=== PATIENT | female | born 1950 | race Caucasian/White ===

== ENCOUNTER 2020-01-14 13:37 | Outpatient (CLI) | payer MEDICARE, SELFPAY | END 2020-01-14 13:38 | disposition home or self-care (01) | PROVIDERS: PCP Family Medicine; Visit Provider Nurse Practitioner Family | DX: F41.9 Anxiety disorder, unspecified (principal); Z79.899 Other long term (current) drug therapy | CPT/HCPCS: 36415; 84436; 84443 ==

== ENCOUNTER 2020-03-13 10:53 | Outpatient (CLI) | payer MEDICARE, SELFPAY | END 2020-03-13 10:54 | disposition home or self-care (01) | LOC: ANHAUDIO 10:54 | PROVIDERS: PCP Family Medicine; Visit Provider Otolaryngology | DX: H93.19 Tinnitus, unspecified ear (principal); H90.3 Sensorineural hearing loss, bilateral | CPT/HCPCS: 92557; 92567 ==

== ENCOUNTER 2020-04-02 14:13 | Outpatient (RCR) | payer MEDICARE, SELFPAY | END 2020-04-02 23:59 | disposition home or self-care (01) | LOC: ANHAUDIO 14:13 | PROVIDERS: PCP Family Medicine; Visit Provider Family Medicine | DX: Z46.1 Encounter for fitting and adjustment of hearing aid (principal) | CPT/HCPCS: 99199 ==

== ENCOUNTER → 2020-12-16 02:33 | Outpatient (CLI) | payer MEDICARE, SELFPAY ==
[2020-12-16 18:17] LABS: SARS-CoV-2 RNA PCR Negative
== END ==
PROVIDERS: PCP Family Medicine; Visit Provider Nurse Practitioner Family
DX: R68.89 Other general symptoms and signs (principal); Z20.822 Contact with and (suspected) exposure to COVID-19
CPT/HCPCS: C9803; U0003; U0005

== ENCOUNTER 2020-12-31 13:23 | Outpatient (CLI) | payer MEDICARE, SELFPAY ==
--- NOTE | ~2020-12-31 | XR_ITS ---
XR hip LT min 3V w AP pelvis DATE: 12/31/2020 13:54 INDICATION: Left hip pain. Fall 3 months ago. TECHNIQUE: AP pelvis. AP, lateral and crosstable lateral views of left hip COMPARISON: None FINDINGS: There is severe degenerative disc disease at L4-5 and evidence of prominent degenerative di sc disease at L5-S1. Normal alignment at the pubic symphysis and sacroiliac joints. Moderate osteopenia. No pelvic fracture or bone destruction is detected. Hip joint spaces appear symmetric and relatively preserved. No fracture or dislocation, avascular necrosis or bone destruction of the left hip. IMPRESSION: Osteopenia Prominent degenerative disc disease at L4-5 and L5-S1 Reviewed, dictated and finalized at location A.
[2020-12-31 14:35] LABS: Basophils Absolute Auto 0.1 K/mm3 (0.0-0.1); Basophils Percent Auto 0.6 % (0.2-1.2); Eosinophils Absolute Auto 0.3 K/mm3 (0-0.3); Eosinophils Percent Auto 3.9 % (0-4.4); Hematocrit 37.9 % (37.0-47.0); Immature Granulocyte Absolute 0.03 K/mm3 (0.00-0.031); Immature Granulocyte Percent A 0.4 % (0-0.5); Lymphocytes Absolute Auto 1.75 K/mm3 (0.9-3.2); Lymphocytes Percent Auto 22.6 % (18.3-44.2); Mean Corpuscular HGB Conc 31.7 g/dl (32-36); Mean Corpuscular Hemoglobin 30.2 pg (26-34); Mean Corpuscular Volume 95.2 fl (80-100); Mean Platelet Volume 9.7 fl (7.4-10.4); Monocytes Absolute Auto 0.5 K/mm3 (0.1-0.6); Monocytes Percent Auto 6.2 % (2.6-8.5); Neutrophils Absolute Auto 5.1 K/mm3 (1.3-6.7); Neutrophils Percent Auto 66.3 % (45.5-73.1); Platelet Count Result 307 k/mm3 (150-375); Red Blood Count 3.98 M/mm3 (4.2-5.4); Red Cell Distribution Width 13.7 % (11.5-14.5); White Blood Count 7.7 K/mm3 (4.5-10.0)
[2020-12-31 14:59] LABS: Alanine Aminotransferase 14 U/L (4-35); Albumin Level 4.2 g/dL (3.5-5.1); Alkaline Phosphatase 81 U/L (38-126); Anion Gap 6 mmol/L (8-16); Aspartate Amino Transferase 28 U/L (14-36); Bilirubin,Total 0.6 mg/dL (0.2-1.3); Blood Urea Nitrogen 19 mg/dL (7-17); Calcium 9.2 mg/dL (8.4-10.2); Carbon Dioxide 26 mmol/L (22-30); Chloride 106 mmol/L (98-107); Cholesterol 282 mg/dL (0-200); Estimated Glomerular Filt Rate 49; Glucose 86 mg/dL (65-110); HDL Direct 39 mg/dL; Potassium 4.1 mmol/L (3.4-5.0); Sodium 138 mmol/L (137-145); Triglycerides 167 mg/dL (<150)
[2020-12-31 15:10] LABS: LDL Cholesterol Direct 156 mg/dL
== END 2020-12-31 13:24 | disposition home or self-care (01) ==
LOC: ANHIMG 13:25
PROVIDERS: PCP Family Medicine; Visit Provider Physician Assistant Medical
DX: M25.552 Pain in left hip (principal); G89.29 Other chronic pain; Z13.220 Encounter for screening for lipoid disorders; I10 Essential (primary) hypertension; M51.36 Other intervertebral disc degeneration, lumbar region; M85.88 Other specified disorders of bone density and structure, other site
CPT/HCPCS: 36415; 73502; 80053; 80061; 84443; 85025

== ENCOUNTER 2021-02-02 15:00 | Outpatient (RCR) | payer MEDICARE, SELFPAY ==
--- NOTE | 2021-01-21 15:05 | PTOPEVAL ---
PHYSICAL THERAPY EVALUATION AND PLAN OF CARE 01-21-21 Thank you for referring Beth Hercules to [facility].? She is scheduled to be seen for therapy? 2x/week for 4 weeks. Please review, sign, date and return this plan of care ARNOLD. I agree with and certify that the following plan of care is medically necessary. Referring Physician Date Attending Provider: NATALIA Moore PT Outpatient Evaluation Document 01/21/21 14:00 TRAN (Rec: 01/21/21 15:04 TRAN [id number]) Outpatient Past Medical History Past Medical History Source of Past Medical History Patient Neurological History Hx Other Neurological Disorders Yes: gabapentin for strange nerve sensations in her head Cardiovascular History Hx Hypercholesterolemia Yes: meds Hx Hypertension Yes: meds Respiratory History Hx Respiratory Disorders No Significant History Gastrointestinal History Hx Appendectomy Yes Hx Obstructive Bowel Yes: surgery Genitourinary History Hx Other Genitourinary Disorders Yes: constipation of bowels; incontinence bladder Musculoskeletal History Hx Arthritis Yes: RA-hands,ankles,R knee Hx Orthopedic Surgery Yes: L foot/toe surgery ~ 4 yr ago; Hematological History Hx Hematological Disorders No Significant History Endocrine History Hx Hypothyroidism Yes: meds Psychosocial History Hx Anxiety Yes: meds control Other History Hx Other Medical Conditions Yes: wt gain of 25# in past 6 months; have had covid vaccine Evaluation Information Problem Diagnosis L hip pain, chronic pain Onset September 2020 Subjective Information fell outside, landed /fell Query Text:As Reported By Patient/ backwards, landed on L tail Family bone and L hand; L thumb/ wrist pain, wearing wrist/ thumb immobilizer brace; pain increased in low back, L hip, R knee and L wrist since fall ; had steroid pack, helped pain; Diagnostic Tests X-Rays For This Problem Yes: lumbar degenerative disc; MRI For This Problem No Other Tests For This Problem No Previous Treatments Previous Treatments For This Problem no PT Prior Level of Function Activity Level (Last 3 Months) Occupation retired Hand Dominance Right Activity of Daily Living Ability Independent Indoor/Home Mobility Independent Community Mobility Independent Stairs Ability Independent Functional Cognition (Planning, Shopping Independent
--- NOTE | 2021-01-30 11:54 | PCPTNOTE ---
Patient called & cancelled scheduled appointment this date and stated she would call to reschedule.
--- NOTE | 2021-02-06 14:21 | PCPTNOTE ---
pt called and canceled today's appt due to a dental emergency;
--- NOTE | 2021-02-10 12:49 | PCPTNOTE ---
pt called and canceled today's appt due to dental appt;
--- NOTE | 2021-02-13 14:35 | PCPTNOTE ---
PHYSICAL THERAPY DISCHARGE 02-13-21 Attending Provider: NATALIA Moore Patient:Beth Hercules Date of :1950 Ms. Hercules has received 3 PT sessions for the diagnosis of L hip pain. She called today, stated she was better and did not need any additional therapy. Therefore, she will be discharged from PT services. The goals were not assessed. Thank you for referring Joelle to [facility]. Please review, sign, date and return this discharge summary ARNOLD. I have been updated about the patient's current status and I agree with discharge from the above service at this time. Referring Physician Date
== END 2021-02-17 08:44 | disposition home or self-care (01) ==
LOC: ANHPT 15:00
PROVIDERS: PCP Family Medicine; Visit Provider Nurse Practitioner Family
DX: M25.552 Pain in left hip (principal); G89.29 Other chronic pain
CPT/HCPCS: 97014; 97110; 97140; 97162; G0283

== ENCOUNTER 2021-04-01 10:17 | Outpatient (CLI) | payer MEDICARE, SELFPAY ==
--- NOTE | ~2021-04-01 | XR_ITS ---
XR lumbar spine 2-3V DATE: 04/01/2021 10:50 INDICATION: Back pain TECHNIQUE: AP, lateral, coned lateral lumbosacral views COMPARISON: 07/23/2013 lumbar spine FINDINGS: There is diffuse osteopenia. There is mild degenerative disc disease at L1-2, L2-3 and L3-4. There is severe degenerative disc disease and grade 1 anterolisthesis at L4-5; there is degenerative change at the apophyseal joints of the lumbosacral area.. There is moderately severe degenerative disease at L5-S1. Lumbar spinal stenosis is not excluded. The sacroiliac joints are intact. There is abdominal aortic and iliac arterial calcification. IMPRESSION: Diffuse osteopenia Multilevel degenerative disc disease, most severe at L4-5 Grade 1 anterolisthesis at L4-5 due to degenerative change at the apophyseal joints Reviewed, dictated and finalized at location A. PLACER IMPRESSION: Diffuse osteopenia Multilevel degenerative disc disease, most severe at L4-5 Grade 1 anterolisthesis at L4-5 due to degenerative change at the apophyseal liana ints
[2021-04-01 11:39] LABS: Basophils Absolute Auto 0.1 K/mm3 (0.0-0.1); Basophils Percent Auto 0.6 % (0.2-1.2); Eosinophils Absolute Auto 0.3 K/mm3 (0-0.3); Eosinophils Percent Auto 3.2 % (0-4.4); Hematocrit 39.5 % (37.0-47.0); Hemoglobin 12.9 g/dL (12.0-15.0); Immature Granulocyte Absolute 0.03 K/mm3 (0.00-0.031); Immature Granulocyte Percent A 0.3 % (0-0.5); Lymphocytes Absolute Auto 2.08 K/mm3 (0.9-3.2); Lymphocytes Percent Auto 22.1 % (18.3-44.2); Mean Corpuscular HGB Conc 32.7 g/dl (32-36); Mean Corpuscular Hemoglobin 31.7 pg (26-34); Mean Corpuscular Volume 97.1 fl (80-100); Mean Platelet Volume 9.5 fl (7.4-10.4); Monocytes Absolute Auto 0.5 K/mm3 (0.1-0.6); Monocytes Percent Auto 5.7 % (2.6-8.5); Neutrophils Absolute Auto 6.4 K/mm3 (1.3-6.7); Neutrophils Percent Auto 68.1 % (45.5-73.1); Platelet Count Result 265 k/mm3 (150-375); Red Blood Count 4.07 M/mm3 (4.2-5.4); Red Cell Distribution Width 13.2 % (11.5-14.5); White Blood Count 9.4 K/mm3 (4.5-10.0)
[2021-04-01 11:58] LABS: Anion Gap 9 mmol/L (8-16); Blood Urea Nitrogen 16 mg/dL (7-17); Carbon Dioxide 24 mmol/L (22-30); Chloride 102 mmol/L (98-107); Estimated Glomerular Filt Rate > 60; Glucose 93 mg/dL (65-110); Potassium 4.4 mmol/L (3.4-5.0); Sodium 135 mmol/L (137-145)
== END 2021-04-01 10:18 | disposition home or self-care (01) ==
PROVIDERS: PCP Family Medicine; Visit Provider Physician Assistant Medical
DX: M47.817 Spondylosis without myelopathy or radiculopathy, lumbosacral region (principal); I10 Essential (primary) hypertension
CPT/HCPCS: 36415; 72100; 80048; 84443; 85025

== ENCOUNTER 2021-04-21 10:47 | Outpatient (CLI) | payer MEDICARE, SELFPAY ==
--- NOTE | ~2021-04-21 | MR_ITS ---
EXAMINATION: MR lumbar spine wo con EXAM DATE: 04/21/2021 11:39 INDICATION: M51.36 - Other intervertebral disc degeneration, lumbar radiculopathy. Low back pain, nick ateral leg pain right side worse. TECHNIQUE: Multi-sequential, multiplanar MR images of the lumbar spine were obtained without contrast . Sagittal T1, T2, T2 fat saturation images. Axial T2 weighted images. There is no prior study for comparison. FINDINGS: There is L4-5 moderate to severe disc disease. Mild to moderate disc disease at the other l umbar levels. The conus medullaris terminates at the L1 level and has normal signal intensity and mor phology. There is 2 mm retrolisthesis L1 on L2, L2 on L3, L3 on L4. There is 2 mm anterolisthesis L4 on L5. Paraspinal soft tissue is unremarkable. Level by level evaluation: T12-L1: Small central disc protrusion. Facet arthropathy: None. Neural foraminal stenosis: No stenosis. Central canal stenosis: No stenosis. L1-L2: There is a mild to moderate diffuse disc bulge. Facet arthropathy: Mild. Neural foraminal stenosis: No stenosis. Central canal stenosis: Mild. L2-L3: There is a mild to moderate diffuse disc bulge. Facet arthropathy: Mild to moderate. Neural foraminal stenosis: Minimal left. Central canal stenosis: Mild. L3-L4: There is a mild diffuse disc bulge. Facet arthropathy: Mild to moderate. Neural foraminal stenosis: No stenosis. Central canal stenosis: Mild. L4-L5: There is a moderate diffuse disc bulge. Facet arthropathy: Severe . Ligamentum flavum enlargement. Neural foraminal stenosis: Moderate to severe left, moderate right. Central canal stenosis: Moderate to severe. L5-S1: There is a mild to moderate diffuse disc bulge. Facet arthropathy: Mild to moderate. Neural foraminal stenosis: No stenosis. Central canal stenosis: Mild. IMPRESSION: 1. L4-5 moderate to severe disc disease, central canal stenosis and left neural foraminal stenosis. 2. Otherwise mild to moderate lumbar spondylosis. Reviewed, dictated and finalized at location A. STIVE TECHNOLOGY SPECIALIST IMPRESSION: 1. L4-5 moderate to severe disc disease, central canal stenosis and left neura l foraminal stenosis. 2. Otherwise mild to moderate lumbar spondylosis.
== END 2021-04-21 10:48 | disposition home or self-care (01) ==
LOC: ANHIMG 10:50
PROVIDERS: PCP Family Medicine; Visit Provider Family Medicine
DX: M47.815 Spondylosis without myelopathy or radiculopathy, thoracolumbar region (principal); M48.05 Spinal stenosis, thoracolumbar region; M47.817 Spondylosis without myelopathy or radiculopathy, lumbosacral region; M48.07 Spinal stenosis, lumbosacral region
CPT/HCPCS: 72148

== ENCOUNTER → 2021-06-01 15:04 | Outpatient (CLI) | payer MEDICARE, SELFPAY ==
--- NOTE | ~2021-06-01 | XR_ITS ---
EXAMINATION: XR knee RT min 4V DATE: 06/01/2021 15:26 INDICATION: Right knee pain. TECHNIQUE: 4 views of right knee including standing views were obtained. COMPARISON: Right knee radiographs 07/23/2013 FINDINGS: Bone alignment is normal. No fracture. There is mild osteoarthritis of patellofemoral evin rtment characterized by tiny marginal osteophytes. No knee joint effusion. IMPRESSION: 1. Mild right knee osteoarthritis. Reviewed, dictated and finalized at location A. ER SERVICE SPECIALIST
== END ==
PROVIDERS: PCP Family Medicine
DX: M25.561 Pain in right knee (principal); M17.11 Unilateral primary osteoarthritis, right knee
CPT/HCPCS: 73564

== ENCOUNTER 2021-10-14 14:31 | Outpatient (CLI) | payer MEDICARE, SELFPAY ==
[2021-10-14 15:53] LABS: Basophils Absolute Auto 0.1 K/mm3 (0.0-0.1); Basophils Percent Auto 0.7 % (0.2-1.2); Eosinophils Absolute Auto 0.4 K/mm3 (0-0.3); Eosinophils Percent Auto 3.1 % (0-4.4); Hematocrit 42.9 % (37.0-47.0); Hemoglobin 13.6 g/dL (12.0-15.0); Immature Granulocyte Absolute 0.07 K/mm3 (0.00-0.031); Immature Granulocyte Percent A 0.6 % (0-0.5); Lymphocytes Absolute Auto 2.21 K/mm3 (0.9-3.2); Lymphocytes Percent Auto 17.4 % (18.3-44.2); Mean Corpuscular HGB Conc 31.7 g/dl (32-36); Mean Corpuscular Volume 97.7 fl (80-100); Mean Platelet Volume 9.6 fl (7.4-10.4); Monocytes Absolute Auto 0.7 K/mm3 (0.1-0.6); Monocytes Percent Auto 5.1 % (2.6-8.5); Neutrophils Absolute Auto 9.3 K/mm3 (1.3-6.7); Neutrophils Percent Auto 73.1 % (45.5-73.1); Platelet Count Result 286 k/mm3 (150-375); Red Blood Count 4.39 M/mm3 (4.2-5.4); Red Cell Distribution Width 13.3 % (11.5-14.5); White Blood Count 12.7 K/mm3 (4.5-10.0)
[2021-10-14 16:07] LABS: Anion Gap 6 mmol/L (8-16); Blood Urea Nitrogen 17 mg/dL (7-17); Calcium 8.8 mg/dL (8.4-10.2); Carbon Dioxide 26 mmol/L (22-30); Chloride 108 mmol/L (98-107); Estimated Glomerular Filt Rate > 60; Glucose 85 mg/dL (65-110); Potassium 4.2 mmol/L (3.4-5.0); Sodium 140 mmol/L (137-145)
== END 2021-10-14 14:32 | disposition home or self-care (01) ==
LOC: ANHLAB 14:33
PROVIDERS: PCP Family Medicine; Visit Provider Physician Assistant Medical
DX: I10 Essential (primary) hypertension (principal); N28.9 Disorder of kidney and ureter, unspecified
CPT/HCPCS: 36415; 80048; 85025

== ENCOUNTER 2022-04-30 10:28 | Outpatient (CLI) | payer MEDICARE, SELFPAY ==
--- NOTE | ~2022-04-30 | XR_ITS ---
EXAMINATION: XR shoulder LT min 2V INDICATION: Left shoulder TECHNIQUE: Four views of the left shoulder are obtained on five radiographs. COMPARISON: None FINDINGS: Normal alignment. No fracture. There is unchanged mild osteoarthritis of the glenohumeral a nd acromioclavicular joints. Soft tissues are unremarkable. IMPRESSION: 1. Mild osteoarthritis without significant change. Reviewed, dictated and finalized at location A. RINE MAKER
== END 2022-04-30 10:29 | disposition home or self-care (01) ==
PROVIDERS: PCP Family Medicine; Visit Provider Nurse Practitioner Family
DX: M25.512 Pain in left shoulder (principal); M19.012 Primary osteoarthritis, left shoulder
CPT/HCPCS: 73030

== ENCOUNTER 2022-06-08 13:41 | Outpatient (CLI) | payer MEDICARE, SELFPAY ==
--- NOTE | ~2022-06-08 | DEXA_ITS ---
Bone Density Report Name: FLIP MONTOYA Age: 72 Sex: Female Ethnicity: White Date of : 1950 Indication: postmenopausal; screening for osteoporosis; hysterectomy; Referring Provider: MOOKIE ISABEL Study: Bone densitometry was performed. Exam Date: June 08, 2022 Accession number: [id number] Bone Density: Region BMD T-score Z-score Classification AP Spine(L1, L2, L3) 0.903 -1.0 1.0 Normal Femoral Neck (Left) 0.550 -2.7 -0.9 Osteoporosis Total Hip (Left) 0.630 -2.6 -1.0 Osteoporosis Femoral Neck (Right) 0.514 -3.0 -1.2 Osteoporosis Total Hip (Right) 0.582 -3.0 -1.4 Osteoporosis Total Hip Mean 0.606 -2.8 -1.2 Osteoporosis World Health Organization criteria for BMD impression classify patients as: Normal (T-score at or above -1.0), Osteopenia (T-score between -1.0 and -2.5), or Osteoporosis (T-score at or below -2.5). 10-year Fracture Risk: FRAX not reported because: Some T-score for Spine Total or Hip Total or Femoral Neck at or below -2.5 Clinical Information Provided by Patient: Smokes Has the following medical conditions: Hysterectomy Patient maximum height was 64 Menopause Age: 40 No regular weight bearing exercise Drinks caffeinated beverages Onset of menses at age 17 Number of children 1 Impression: The patient has osteoporosis, based on the Right Total Hip T-score. The patient has risk factors, including: smoking. Discussion: INCREASED RISK OF FRACTURE. BONE DENSITY IS UNDESIRABLY LOW AT ONE OR MORE SKELETAL SITES, CONSISTENT WITH POSTMENOPAUSAL OSTEOPOROSIS. This patient's lowest T-score meets the World Health Organization's (WHO) criteria for osteoporosis at one or more sites (T-score -2.5 or below). In untreated patients, the risk of osteoporotic fracture increases approximately two-fold for each 1.0 SD decrease in T-score. Low bone density is not the only risk factor for fracture; also consider factors such as patient's age, frailty or poor health, risk of falling, risk of injury, previous osteoporotic fracture, family history of osteoporosis, cigarette smoking, low body weight, etc. Not everyone with low bone mineral density has osteoporosis; osteomalacia and other metabolic bone disorders should also be considered. Patients who have osteoporosis should be evaluated for specific diseases and conditions (secondary causes) that may cause or contribute to bone loss. The [employer] Association of Clinical Endocrinologists (AACE) and National Osteoporosis Foundation (NOF) recommend pharmacologic intervention for all postmenopausal women whose T-score is in this range. The patient should follow a healthful lifestyle (good nutrition with adequate calcium and vitamin D, and appropriate weight-bearing exercise). Follow-Up: Consider a repeat BMD and Vertebral Fracture Assessment (
== END 2022-06-08 13:42 | disposition home or self-care (01) ==
PROVIDERS: PCP Family Medicine; Visit Provider Nurse Practitioner Family
DX: Z78.0 Asymptomatic menopausal state (principal); M81.0 Age-related osteoporosis without current pathological fracture
CPT/HCPCS: 77080

== ENCOUNTER 2022-09-03 10:40 | Outpatient (CLI) | payer MEDICARE, SELFPAY ==
--- NOTE | ~2022-09-03 | XR_ITS ---
XR wrist RT 2V DATE: 09/03/2022 10:58 INDICATION: Pain in right wrist after fall 2 weeks ago TECHNIQUE: AP and lateral views COMPARISON: None FINDINGS: No recent fracture or dislocation is detected. No periosteal reaction or bone destruction. IMPRESSION: No recent fracture or dislocation is detected Reviewed, dictated and finalized at location B.
--- NOTE | ~2022-09-03 | XR_ITS ---
XR hand RT 2V DATE: 09/03/2022 10:58 INDICATION: Right hand pain TECHNIQUE: AP and lateral views COMPARISON: September 03, 2022) July 23, 2013 right hand FINDINGS: Osteopenia. There is polyarticular mild to moderate osteoarthritis, including the second an d to a lesser extent third metacarpophalangeal and multiple interphalangeal joints. No fracture or dislocation, periosteal reaction or bone destruction, chondrocalcinosis or erosive sarai nge is evident. IMPRESSION: Osteopenia Mild to moderate polyarticular osteoarthritis Reviewed, dictated and finalized at location B.
== END 2022-09-03 10:41 | disposition home or self-care (01) ==
LOC: ANHIMG 10:44
PROVIDERS: PCP Family Medicine; Visit Provider Physician Assistant Medical
DX: M19.041 Primary osteoarthritis, right hand (principal)
CPT/HCPCS: 73100; 73120

== ENCOUNTER 2022-12-07 09:46 | Outpatient (CLI) | payer MEDICARE, SELFPAY ==
--- NOTE | ~2022-12-07 | US_ITS ---
EXAMINATION: US carotid duplex BI DATE: 12/07/2022 10:22 INDICATION: Essential/primary hypertension TECHNIQUE: Grayscale, color Doppler, and pulsed Doppler images of the cervical carotid arteries were obtained. The degree of vessel stenosis is placed in one of the following categories: normal, <50%, 5 0-69%, >=70% but less than near-occlusion, near-occlusion, or total occlusion. Note that percent sten osis relative to normal distal artery lumen diameter is indirectly measured from velocity measurement s as described by Brice, et al. Radiology 2003; 229:340-346. COMPARISON: None. FINDINGS: RIGHT: The right common carotid artery (CCA) peak systolic velocity (PSV) is 83 cm/s. The right internal car otid artery (ICA) PSV is 51 cm/s. The right ICA end-diastolic velocity (EDV) is 17 cm/s. The right IC A/CCA PSV ratio is 0.6. Grayscale and color Doppler images yield an estimate of <50% diameter reducti on from plaque in the ICA. The external carotid artery (ECA) PSV is 72 cm/s. There is antegrade flow in the right vertebral artery. LEFT: The left CCA PSV is 88 cm/s. The left ICA PSV is 58 cm/s. The left ICA EDV is 24 cm/s. The left ICA/C CA PSV ratio is 0.7. Grayscale and color Doppler images yield an estimate of <50% diameter reduction from plaque in the ICA. The ECA PSV is 68 cm/s. There is antegrade flow in the left vertebral artery. IMPRESSION: 1. <50% stenosis in the right internal carotid artery. 2. <50% stenosis in the left internal carotid artery. Reviewed, dictated and finalized at location A.
--- NOTE | 2022-12-07 10:21 | ECHO_ITS ---
Patient Info Name: Beth Hercules Age: 72 years : 1950 Gender: Female Ht: 64 in Wt: 144 lbs BSA: 1.73 m2 HR: 81 bpm BP: 130 / 81 mmHg Heart Rhythm: Sinus Rhythm Technical Quality: Fair Exam Date: 12/07/2022 10:48 AM Exam Location: [facility] Patient Status: Outpatient Admit Date: 12/07/2022 Staff Ordering Physician: Alejandra Herrera Internet Sourcer: Chloe Michel RDCS Attending Provider: Alejandra Herrera Referring Physician: Sharon CROSS; Exam Type: CA echo doppler color flow Study Info Indications I10 - Essential (primary) hypertension Complete two-dimensional, color flow and Doppler transthoracic echocardiogram is performed. Summary 1. Complete two-dimensional, color flow and Doppler transthoracic echocardiogram is performed. 2. Left ventricular chamber dimension is normal. 3. Left ventricular systolic function is normal, estimated at 60-65%. 4. The left ventricular diastolic function is grade I diastolic dysfunction. 5. E/e' 8 is minimally elevated. 6. There is mild aortic valve sclerosis. 7. There is trace tricuspid valve regurgitation. 8. No pulmonary hypertension, estimated pulmonary arterial systolic pressure is 12 mmHg. Left Ventricle E/e' 8 is minimally elevated. Left ventricular chamber dimension is normal. Left ventricular systolic function is normal, estimated at 60-65%. The left ventricular diastolic function is grade I diastolic dysfunction. Right Ventricle Right ventricular systolic function is normal and with normal TAPSE 1.9 cm. Right ventricular chamber dimension is normal. Left Atria Left atrial chamber dimension is normal. Right Atria Right atrial chamber dimension is normal. Aortic Valve The aortic valve is trileaflet. There is mild aortic valve sclerosis. There is no aortic valve stenosis. There is no aortic valve regurgitation. Pulmonic Valve There is no pulmonic regurgitation. Mitral Valve There is no mitral valve stenosis. There is no mitral valve regurgitation. Tricuspid Valve There is trace tricuspid valve regurgitation. No pulmonary hypertension, estimated pulmonary arterial systolic pressure is 12 mmHg. Pericardium/Pleural There is no pericardial effusion. Inferior Vena Cava Normal inferior vena cava with >50% collapse upon inspiration consistent with normal right atrial pressure, 5 mmHg. Aorta The aortic root size at the sinus of Valsalva is normal. Left Ventricular Outflow Tract Name Value Normal LVOT 2D LVOT Diameter 1.9 cm LVOT Doppler LVOT Peak Gradient 3 mmHg LVOT Mean Gradient 2 mmHg LVOT VTI 18 cm LVOT VTI/AV VTI Ratio 0.9 LVOT Stroke Volume 50 ml LVOT CO 3.3 l/min LVOT CI 1.9 l/min/m2 Pulmonic Valve Name Value Normal RVOT Doppler RV
== END 2022-12-07 09:47 | disposition home or self-care (01) ==
LOC: ANHIMG 09:49
PROVIDERS: PCP Family Medicine; Visit Provider Nurse Practitioner Family
DX: I65.23 Occlusion and stenosis of bilateral carotid arteries (principal); I35.8 Other nonrheumatic aortic valve disorders; I10 Essential (primary) hypertension; R42 Dizziness and giddiness; I95.1 Orthostatic hypotension
CPT/HCPCS: 93306; 93880

== ENCOUNTER 2024-10-23 14:43 | Outpatient (CLI) | payer MEDICARE, SELFPAY ==
--- NOTE | ~2024-10-23 | XR_ITS ---
Bilateral Hands Technique: Bilateral PA, oblique, and lateral views, and ball-catcher's view were obtained. Clinical History: Pain Findings: No acute fracture or dislocation is seen. Osseous alignment is anatomic. There is moderate degenerative change at the right first CMC joint and right second MCP joint. There is moderate to adv anced degenerative change at the left first CMC joint. Soft tissues are unremarkable. Impression: Degenerative changes, as above. Reviewed, dictated and finalized at location M. Impression: Degenerative changes, as above.
[2024-10-23 15:59] LABS: Hemoglobin 13.1 g/dL (12.0-15.0); Mean Corpuscular Hemoglobin 31.6 pg (26-34); Mean Platelet Volume 9.2 fl (7.4-10.4); Platelet Count Result 348 k/mm3 (150-375); Red Blood Count 4.14 M/mm3 (4.2-5.4); Red Cell Distribution Width 13.4 % (11.5-14.5); White Blood Count 12.8 K/mm3 (4.5-10.0)
--- OUTSIDE RECORDS SUMMARY | 2024-10-23 16:14 | XMS_ITS | Clinical Summary ---
Author Organization [facility] [employer] Address [address] [place] [address] Care Team Providers Care Ux Consultant Name Role Phone Robin Mishra MD Primary Care Provider [phone] Source Comments [facility]non-[facility] Affiliates and Associated Physician Practices is amultiple site organization consisting of ambulatory clinics and hospital sitesin [place], [place]. This disclosure is being madepursuant to the Care Everywhere program and may not contain all information available regarding this patient. Last updated 18.[facility] [employer] Allergies Active Allergy Reactions Criticality Noted Date Comments B6-Benzyl Alc 01/16/2015 Codeine 01/16/2015 Niacin 01/16/2015 Medications * Be aware that medications may not be up to date on this document. Alwaysverify current medications with the patient. ALPRAZolam (XANAX) 1 MG tablet 02/04/2015 Active venlafaxine XR 24hr (EFFEXOR XR) 75 MG capsule 03/04/2015 Active simvastatin (ZOCOR) 40 MG tablet Take 40 mg by mouth at bedtime Active acetaminophen CR (TYLENOL ARTHRITIS PAIN) 650 MG tablet Take 650 mg by mouth every 8 hours as needed for Pain Active ALPRAZolam (XANAX) 0.5 MG tablet 06/23/2015 Active valsartan-hydro CHLOROthiazide (DIOVAN HCT) 160-12.5 MG tablet Take 1 tablet by mouth once daily Active Family History Medical History Relation Name Comments Lung Cancer Father Cancer - Pancreatic Mother Relation Name Status Comments Father (Age 84) Mother (Age 66) Social History Tobacco Use Types Packs/Day Years Used Date Smoking Tobacco: Never Smokeless Tobacco: Never Alcohol Use Standard Drinks/Week Comments No 0 (1 standard drink = 0.6 oz pur e alcohol) Comments No Sex and Gender Information Value Date Recorded Sex Assigned at Not on file Legal Sex Female 4:53 PM CDT Gender Identity Not on file Sexual Orientation Not on file Last Filed Vital Signs Vital Sign Reading Time Taken Comments Blood Pressure 144/82 10/28/2017 3:07 PM CDT Pulse 80 10/28/2017 3:07 PM CDT Temperature 36.8 C (98.3 F) 10/28/2017 3:07 PM CDT Respiratory Rate 16 10/28/2017 3:07 PM CDT Oxygen Saturation 98% 10/28/2017 3:07 PM CDT Inhaled Oxygen Concentration - - Weight 77.1 kg (170 lb) 10/28/2017 3:07 PM CDT Height 162.6 cm (5' 4) 10/28/2017 3:07 PM CDT Body Mass Index 29.18 10/28/2017 3:07 PM CDT Plan of Treatment Health Maintenance Due Date Last Done Comments BONE DENSITY TESTING 1950 COLOGUARD (AGES 45-75) - COL ON CA SCREENING 1950 COLON MONITORING 1950 COLONOSCOPY - COLON CA SCREENING 1950 CT COLONOGRAPHY - COLON CA SCREENING 1950 Colorectal Cancer Screening 1950 FIT - COLON CA SCREENING 1950 FLEX SIG - COLON CA SCREENING 1950 MAMMOGRAM 1950 HEPATITIS C SCREENING 03/13/1970 DTAP/TDAP/TD VACCINES (1 - Tdap) 1971 PNEUMOCOCCAL VACCINE 50+ (1 of 1 - PCV) 2002 ZOSTER VACCINE (1 of 2) 2002 SCREENING FOR DIABETES 07/01/2018 6, 03/05/2015 COVID-19 VACCINE (1 - 2023-2 5 season) 2024 DEPRESSION SCREENING 05/16/2024 INFLUENZA VACCINE (Season Ended) 2025 Respiratory Syncytial Virus (RSV) Vaccine Pt: or over 60 yrs (1 - 1-dose 75+ series) 2027 HEPATITIS B VACCINE Aged Out No longe r eligible based on patient's age to complete this topic HIB VACCINE Aged Out No longer eligi ble based on patient's age to complete this topic HPV VACCINE Aged Out No longer eligi ble based on patient's age to complete this topic MENINGOCOCCAL (Group B) VACCINE SHARED DECISION-MAKING Aged Out No longer eligible based on patient's age to complete this topic MENINGOCOCCAL GROUPS A/C/Y/W VACCINE Aged Out No longer eligible b ased on patient's age to complete this topic Procedures Procedure Name Priority Date/Time Associated Diagnosis Comments COMPREHENSIVE METABOLIC PANEL 07/01/2015 5:04 PM FLAKE MILLER HELPER from Last 3 Months or Most Recently Relevant to Health Maintenance Results * (ABNORMAL) COMPREHENSIVE METABOLIC PANEL (07/01/2015 5:04 PM FLAKE MILLER HELPER) Glucose 82 65 - 99 mg/dL [facility] Comment: Fasting reference interval BUN 31(H) 7 - 25 mg/dL [facility] Creatinine 0.92 0.50 - 0.99 mg/dL [facility] Comment: For patients >49 years of age, the reference limit for Creatinine is approximately 13% higher for people identified as -Martiniquais. eGFR by MDRD 66 > OR = 60 mL/min/1.7 3m2 [facility] eGFR by MDRD 77 > OR = 60 mL/min/1.7 3m2 [facility] BUN/Creatinine Ratio 34(H) 6 - 22 (calc) [facility] Sodium 141 135 - 146 mmol/L [facility] Potassium 4.8 3.5 - 5.3 mmol/L [facility] Chloride 103 98 - 110 mmol/L [facility] CO2 31(H) 19 - 30 mmol/L [facility] Calcium 9.6 8.6 - 10.4 mg/dL [facility] Protein Total 6.5 6.1 - 8.1 g/dL [facility] Albumin 4.2 3.6 - 5.1 g/dL [facility] Globulin Total 2.3 1.9 - 3.7 g/dL (calc) [facility] Albumin/Globulin Ratio 1.8 1.0 - 2.5 (calc) [facility] Bilirubin Total 0.5 0.2 - 1.2 mg/dL [facility] Alkaline Phosphatase 73 33 - 130 U/L [facility] AST 31 10 - 35 U/L [facility] ALT 41(H) 6 - 29 U/L [facility] Comment: Test Performed at: [facility] [address] [place] [address] NATALI MARINA DO,MPH 07/01/2015 5:04 PM FLAKE MILLER HELPER 07/01/2015 5:04 PM FLAKE MILLER HELPER Crissy Nieto TRAINING DEVELOPER-ANATOMY AND PHYSIOLOGY INSTRUCTOR LAB - CHEMISTRY ORDERA BLES Final Result [facility] [id number] [place] [address] from Last 3 Months or Most Recently Relevant to Health Maintenance Insurance MEDICARE MEDICARE Care Teams Ux Consultant Relationship Specialty Start Date End Date Robin Mishra MD [address] [place] [id number] PCP - General Family Medicine 03/05/15
[2024-10-23 16:26] LABS: Alanine Aminotransferase 12 U/L (6-35); Albumin Level 4.4 g/dL (3.5-5.1); Alkaline Phosphatase 96 U/L (38-126); Anion Gap 8 mmol/L (4-12); Aspartate Amino Transferase 29 U/L (14-36); Bilirubin,Total 0.4 mg/dL (0.2-1.3); Blood Urea Nitrogen 16 mg/dL (7-17); Calcium 9.8 mg/dL (8.4-10.2); Carbon Dioxide 26 mmol/L (22-30); Chloride 103 mmol/L (98-107); Cholesterol 262 mg/dL (0-200); Estimated Glomerular Filt Rate 59; Glucose 105 mg/dL (65-110); HDL Direct 47 mg/dL; Potassium 4.7 mmol/L (3.4-5.0); Sodium 137 mmol/L (137-145); Triglycerides 200 mg/dL (<150)
[2024-10-23 16:37] LABS: LDL Cholesterol Direct 149 mg/dL
== END 2024-10-23 14:44 | disposition home or self-care (01) ==
PROVIDERS: PCP Family Medicine; Visit Provider Physician Assistant Medical
DX: M18.0 Bilateral primary osteoarthritis of first carpometacarpal joints (principal); I95.1 Orthostatic hypotension; I10 Essential (primary) hypertension
CPT/HCPCS: 36415; 73130; 80053; 80061; 84443; 85027